=== PATIENT | female | born 1930 | race Caucasian/White ===

== ENCOUNTER 2016-11-13 12:16 | Emergency (ER) | payer MEDICARE ==
[2016-11-13] MEDS ORDERED: OXYCODONE HCL 5 MG TABLET ONE (12:59)
--- NOTE | 2016-11-13 13:42 | RAD ---
RIGHT KNEE 4 VIEWS HISTORY: Right knee pain, no known injury. Frontal, lateral, and bilateral oblique views of the right knee. COMPARISON: 08/27/2009 ALIGNMENT: Valgus angulation of moderate severity. JOINT SPACES: Severe narrowing of the lateral compartment, mildly worsened. JOINT EFFUSION: Moderate joint effusion, increased over the interval. CALCIFICATIONS: Dystrophic and vascular calcifications. FRACTURE: No displaced acute fracture. IMPRESSION: No malalignment or displaced acute fracture. 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 Moderate joint effusion.
[2016-11-13 15:06] LABS: SYNOVIAL FLUID SOURCE RIGHT KNEE
[2016-11-13 15:07] LABS: SYNOVIAL FLUID APPEARANCE CLOUDY; SYNOVIAL FLUID COLOR RED; SYNOVIAL FLUID NEUTROPHILS 76 % (0-20); SYNOVIAL FLUID RBC 0.3 K/mm3; SYNOVIAL FLUID WBC 8.2 /mm3
== END 2016-11-13 16:17 | disposition home or self-care (01) ==
LOC: ED 12:16
DX: M25.461 Effusion, right knee (principal); I10 Essential (primary) hypertension; E03.9 Hypothyroidism, unspecified; E11.9 Type 2 diabetes mellitus without complications; Z79.84 Long term (current) use of oral hypoglycemic drugs
CPT/HCPCS: 89051; 89060; 87070; 82945; 87205; 73564; 99283 ×2; 20610 ×2; A9270